=== PATIENT | female | born 1945 | race Caucasian/White ===

== ENCOUNTER → 2024-04-12 11:12 | Outpatient (CLI) | payer MEDICARE, OTHER, SELFPAY ==
[2024-04-12 12:06] LABS: Influenza A - CEPHEID Flu A NEGATIVE (NEGATIVE); Influenza B - CEPHEID Flu B NEGATIVE (NEGATIVE); Respiratory Syncytial Virus Negative (Negative)
[2024-04-12 12:07] LABS: COVID-19 CEPHEID 4-PLEX PCR POSITIVE (Negative)
== END ==
PROVIDERS: PCP Family Medicine; Referring Provider Family Medicine; Visit Provider Family Medicine
DX: R07.0 Pain in throat (principal); R05.8 Other specified cough; Z20.822 Contact with and (suspected) exposure to COVID-19
CPT/HCPCS: 0241U

== ENCOUNTER → 2024-05-21 16:38 | Outpatient (CLI) | payer MEDICARE, OTHER, SELFPAY ==
[2024-05-21 21:54] LABS: Occult Blood 1 Negative (Negative); Occult Blood 2 Negative (Negative); Occult Blood 3 Negative (Negative)
== END ==
PROVIDERS: PCP Family Medicine; Referring Provider Internal Medicine Gastroenterology; Visit Provider Internal Medicine Gastroenterology
DX: R19.5 Other fecal abnormalities (principal); R93.3 Abnormal findings on diagnostic imaging of other parts of digestive tract
CPT/HCPCS: 82270

== ENCOUNTER → 2024-06-10 13:14 | Outpatient (CLI) | payer MEDICARE, OTHER, SELFPAY ==
[2024-06-10 16:42] LABS: BUN Creatinine Ratio 17.3 (6-22); Blood Urea Nitrogen 18 mg/dL (7-17); Calcium 9.9 mg/dL (8.4-10.2); Estimated Glomerular Filt Rate 54 mL/min (>60)
== END ==
PROVIDERS: PCP Family Medicine; Referring Provider Family Medicine; Visit Provider Family Medicine
DX: M81.0 Age-related osteoporosis without current pathological fracture (principal); K92.1 Melena
CPT/HCPCS: 82310; 82565; 84520

== ENCOUNTER 2024-06-24 14:56 | Emergency (ER) | payer MEDICARE, OTHER, SELFPAY ==
[2024-06-24 15:15] VITALS: BP 215/95; PULSE 79; RESP 17; TEMP 36.4; O2SAT 100; BMI 18.6
--- NOTE | 2024-06-24 15:50 | DI.CT.S_ITS ---
PROCEDURE: CT HEAD/BRAIN WO CON INDICATIONS: fall TECHNIQUE: Noncontrast 4.5 mm thick angled axial sections acquired from the foramen magnum to the vertex, with coronal and sagittal reformats. For radiation dose reduction, the following was used: automated exposure control, adjustment of mA and/or kV according to patient size. COMPARISON: [facility], CT, CT CERVICAL SPINE WO CON, 06/24/2024, 16:13. FINDINGS: Image quality: Diagnostic. CSF spaces: Basal cisterns are patent. No extra-axial fluid collections. The ventricles are symmetric in size and shape. Brain: No intracranial bleeds or masses. There is cerebral volume loss for age, with resultant ventricular and sulcal prominence. There are periventricular and deep white matter chronic small vessel ischemic changes. There is intracranial internal carotid artery atherosclerosis. Skull and face: There is a soft tissue scalp hematoma seen within the right periorbital/temporal region. No associated calvarial fracture can be seen. Calvarium and visualized facial bones appear intact, without suspicious lesions. Sinuses: Visualized sinuses and mastoids are clear. IMPRESSION: Right periorbital/temporal scalp hematoma seen. No displaced calvarial fracture can be seen. No acute intracranial hemorrhage is seen. No acute intracranial process is seen. Dictated by: Jean Lechuga M.D. on 06/24/2024 at 15:40 Approved by: Jean Lechuga M.D. on 06/24/2024 at 15:40
--- NOTE | 2024-06-24 15:50 | DI.CT.S_ITS ---
PROCEDURE: CT CERVICAL SPINE WO CON INDICATIONS: fall TECHNIQUE: Noncontrast 3 mm thick sections acquired from the skull base to the T4 level. Sagittal and coronal reformats were then constructed. For radiation dose reduction, the following was used: automated exposure control, adjustment of mA and/or kV according to patient size. COMPARISON: None. FINDINGS: Image quality: Excellent. Bones: No fractures or dislocations. Visualized superior ribs are intact. Severe disc height loss at C5-6. Moderate disc height loss at remaining levels. Grade 1 anterolisthesis of C4 on C5 due to facet arthrosis. Soft tissues: Prevertebral soft tissues are normal in thickness. No paravertebral hematomas. No apical pneumothoraces. IMPRESSION: No displaced fracture or traumatic subluxation. Dictated by: Quinn Patiño M.D. on 06/24/2024 at 16:44 Approved by: Quinn Patiño M.D. on 06/24/2024 at 16:46
[2024-06-24] MEDS: TET,DIPH,PERTUSS(ACELL),VAC/PF 0.5 ML SYRINGE IM (15:57)
[2024-06-24 17:33] VITALS: BP 193/96; PULSE 79; RESP 14; O2SAT 95
--- NOTE | 2024-07-01 11:42 | ED_ITS ---
HPI - Fall <Marley Santos PA-C - Last Filed: 07/01/24 11:52> General Chief Complaint: Fall Stated Complaint: GLF, head hit, no blood thinners Time Seen by Provider: 06/24/24 15:36 Source: patient Mode of arrival: Ambulatory History of Present Illness HPI Narrative: 79-year-old female presents to the ED with a head injury from a mechanical fall sustained earlier today. Patient states that she turned around, lost her balance and fell on the sidewalk. Patient is not on thinners. Patient did not lose consciousness. Denies neck pain. Denies any other injuries. Tetanus status unknown. Related Data Home Medications Medication Instructions Recorded Confirmed ASPIRIN (#ASPIRIN E.C.) 81 mg PO Q DAY ##0 05/19/11 06/27/24 nortriptyline 10 mg capsule 10 mg PO ONCE PM 04/12/24 06/27/24 Previous Rx's Medication Instructions Recorded atenolol 25 mg tablet 25 mg PO DAILY #90 tabs 05/14/24 zoledronic acid 5 mg/100 mL in See Rx Instructions IV ONCE 06/28/24 mannitol 5 %-water intravenous piggybck Allergies Allergy/AdvReac Type Severity Reaction Status Date / Time No Known Drug Allergies Allergy Verified 06/26/24 10:40 Review of Systems <Marley Santos PA-C - Last Filed: 07/01/24 11:52> Constitutional Constitutional: Denies chills, Denies fatigue, Denies fever(s), Denies frequent falls, Reports headache(s), Denies lethargy and Denies weakness Comments: Bump on right temporal, abrasion Eyes Eyes: Denies change in vision, Denies eye discharge, Denies irritation and Denies loss of vision ENT Ears, Nose, Mouth, and Throat: Denies change in voice, Denies dizziness, Reports headache(s), Denies neck pain, Denies sore throat and Denies throat swelling Cardiovascular Cardiovascular: Denies chest pain, Denies irregular heart rhythm, Denies lightheadedness, Denies palpitations, Denies dyspnea, Denies dyspnea on exertion and Denies orthopnea Respiratory Respiratory: Denies cough, Denies dyspnea, Denies dyspnea on exertion and Denies wheezing Gastrointestinal Gastrointestinal: Denies abdominal pain, Denies change in bowel habits, Denies diarrhea, Denies nausea and Denies vomiting Musculoskeletal Musculoskeletal: Denies neck pain and Denies numbness Integumentary/Breasts Skin/Breast: Denies pruritus, Denies erythema, Denies rash and Denies wounds Neurologic Neurologic: Denies behavioral changes, Denies confusion, Denies dizziness, Denies frequent falls, Reports headache(s), Denies loss of vision, Denies numbness and Denies weakness Psychiatric Psychiatric: Denies anxiety, Denies behavioral changes, Denies confusion, Denies depression, Denies homicidal ideation and Denies suicidal ideation Endocrine Endocrine: Denies fatigue, Denies flushing and Denies palpitations Hematologic/Lymphatic Hematologic/Lymphatic: Denies easy bruising Allergic/Immunologic Allergic/Immunologic: Denies urticaria, Denies throat swelling and Denies wheezing Patient History <Marley Santos PA-C - Last Filed: 07/01/24 11:52> Medical History Osteoporosis IBS (irritable bowel syndrome) Carotid artery plaque Hypertension Hematochezia Nephrolithiasis Social History Smoking Status: Never smoker Smoking Status: Never smoker Exam <Marley Santos PA-C - Last Filed: 07/01/24 11:52> Narrative Exam Narrative: Const General:?cooperative, healthy appearing and comfortable [facility] Head: There is an abrasion and hematoma to the right temporal. No raccoon eyes, benitez signs. Ears:?hearing grossly normal bilaterally Nose:?external nose normal Face and sinus:?normal facial exam and sinuses nontender Mouth:?oral mucosae normal Throat:?posterior oropharynx normal Eyes General:?appearance normal, both eyes and all related structures Neck Neck:?normal visual inspection and no lymphadenopathy noted; no midline tenderness to palpation. Full range of motion. Resp Effort & Inspection:?normal respiratory effort Auscultation:?clear to auscultation bilaterally Cardio Rate:?regular rate Rhythm:?regular rhythm Neuro General:?patient alert, patient awake and patient oriented x3 Initial Vital Signs Initial Vital Signs: Vital Signs Temperature 97.6 F 06/24/24 15:15 Pulse Rate 79 06/24/24 15:15 Respiratory Rate 17 06/24/24 15:15 Blood Pressure 215/95 H 06/24/24 15:15 Pulse Oximetry 100 10/07/24 15:15 Oxygen Delivery Method Room Air 06/24/24 15:15 <Ayde Martinez DO - Last Filed: 07/01/24 23:13> Initial Vital Signs Initial Vital Signs: Vital Signs Temperature 97.6 F 06/24/24 15:15 Pulse Rate 79 06/24/24 15:15 Respiratory Rate 17 06/24/24 15:15 Blood Pressure 215/95 H 06/24/24 15:15 Pulse Oximetry 100 06/24/24 15:15 Oxygen Delivery Method Room Air 06/24/24 15:15 Course <Marley Santos PA-C - Last Filed: 07/01/24 11:52> Orders Ordered: Discontinued Medications Diphtheria/Tetanus/Acell Pertussis (Tet,Diph,Pertuss(Acell),Vac/Pf 0.5 Ml S yringe) 0.5 ml IM .ONCE ONE Stop: 06/24/24 15:51 Last Admin: 06/24/24 15:57 Dose: 0.5 ml Documented By: RLS <Ayde Martinez DO - Last Filed: 07/01/24 23:13> Orders Ordered: Discontinued Medications Diphtheria/Tetanus/Acell Pertussis (Tet,Diph,Pertuss(Acell),Vac/Pf 0.5 Ml Syringe) 0.5 ml IM .ONCE ONE Stop: 06/24/24 15:51 Last Admin: 06/24/24 15:57 Dose: 0.5 ml Documented By: GENESIS MDM - Fall <Marley Santos PA-C - Last Filed: 07/01/24 11:52> [facility] Narrative Medical decision making narrative: 79-year-old female presents to the ED with a head injury from a mechanical fall sustained earlier today. Concern for fracture versus intracranial injuries versus hematoma versus other. Obtained CT scans of head and cervical spine. CT scan of the head shows a right periorbital/temporal scalp hematoma. No intracranial hemorrhage, intracranial process, calvarial fracture. CT scan of the cervical spine without acute findings. Patient's tetanus was updated. Fall precautions discussed with patient. ED return precautions discussed with patient. Patient verbalized understanding. Medical records reviewed: Yes Discharge Plan Departure Patient Disposition: Home Clinical Impression: Head injury Qualifiers: Encounter type: initial encounter Qualified Code(s): S09.90XA - Unspecified injury of head, initial encounter Instructions: How to Prevent Falls Activity Restrictions/Additional Instructions: You were evaluated in the ED today for a head injury. The CT scans of the head and neck were normal. Your tetanus was updated today, which is good for the n ext 10 years. It appears you have a small hematoma/goose egg over your right temporal. This will resolve by itself over the next few days. Return to the ED if you have any worsening symptoms. Prescriptions: No Action nortriptyline 10 mg capsule 10 mg PO ONCE PM ASPIRIN (#ASPIRIN E.C.) 81 mg PO Q DAY Qty: 0 atenolol 25 mg tablet 25 mg PO DAILY MDD 1 Tablet daily Qty: 90 0RF zoledronic zouh-joysguza-owcas 5 mg/100 mL piggyback See Rx Instructions IV ONCE Rx Instructions: 5 mg intravenously once; administer over at least 15 mins Referrals: Natacha Matthew MD [Primary Care Provider] - Stand Alone Forms: Patient Portal/API ED Sign-out <Ayde Martinez DO - Last Filed: 07/01/24 23:13> Cosign ED Attending Murray Attestation: I was available for consultation.
== END 2024-06-24 17:38 | disposition home or self-care (01) ==
PROVIDERS: Emergency Provider Student in an Organized Health Care Education/Training Program; PCP Family Medicine
DX: S09.90XA Unspecified injury of head, initial encounter (principal); W18.30XA Fall on same level, unspecified, initial encounter; Z23 Encounter for immunization
CPT/HCPCS: 70450; 72125; 90471; 99284; 90715

== ENCOUNTER → 2024-07-16 10:34 | Outpatient (CLI) | payer MEDICARE, OTHER, SELFPAY ==
--- NOTE | 2024-07-16 10:35 | DI.US.S_ITS ---
PROCEDURE: US CAROTID DOPPLER BI INDICATIONS: DIZZINESS AND SYNCOPE TECHNIQUE: Color and pulse Doppler interrogation was performed of both carotid systems, with image documentation and velocity measurements. COMPARISON: [facility], CT, CT CERVICAL SPINE WO CON, 06/24/2024, 16:13. FINDINGS: Stenosis calculations are based on SRU (Society of Radiologists in Ultrasound) criteria. Right side: Brachial blood pressure: 146/75 mm Hg. Common carotid artery peak systolic velocity: 80 cm/sec. Internal carotid artery peak systolic velocity: 110 cm/sec. Internal carotid artery end diastolic velocity: 39 cm/sec. External carotid artery peak systolic velocity: 105 cm/sec. ICA/CCA peak systolic ratio: 1.4 . Pollard scale imaging description: Mild plaque. Less than 50% stenosis. Percent internal carotid artery stenosis: Less than 50% by peak systolic velocity criteria. . Vertebral artery: Flow direction is antegrade. Left side: Brachial blood pressure: 140/73 mm Hg. Common carotid artery peak systolic velocity: 91 cm/sec. Internal carotid artery peak systolic velocity: 112 cm/sec. Internal carotid artery end diastolic velocity: 33 cm/sec. External carotid artery peak systolic velocity: 62 cm/sec. ICA/CCA peak systolic ratio: 1.2 . Pollard scale imaging description: Mild plaque. No significant stenosis. Percent internal carotid artery stenosis: Less than 50% by peak systolic velocity criteria. . Vertebral artery: Flow direction is antegrade. IMPRESSION: There is bilateral atherosclerotic plaque with less than 50% bilateral stenosis by peak systolic velocity criteria. Dictated by: Orlando Gotti M.D. on 07/16/2024 at 16:59 Approved by: Orlando Gotti M.D. on 07/16/2024 at 17:03
== END ==
PROVIDERS: PCP Family Medicine; Referring Provider Family Medicine; Visit Provider Family Medicine
DX: I65.23 Occlusion and stenosis of bilateral carotid arteries (principal); R42 Dizziness and giddiness; R55 Syncope and collapse
CPT/HCPCS: 93880

== ENCOUNTER → 2024-07-25 09:45 | Outpatient (CLI) | payer MEDICARE, OTHER, SELFPAY ==
[2024-07-25 11:23] LABS: Alanine Aminotransferase 21 IU/L (<35); Albumin 3.9 g/dL (3.5-5.0); Albumin Globulin Ratio 1.6 (1.0-2.8); Alkaline Phosphatase 76 U/L (38-126); Aspartate Aminotransferase 29 IU/L (14-36); BUN Creatinine Ratio 13.5 (6-22); Bilirubin Total 0.6 mg/dL (0.2-1.3); Blood Urea Nitrogen 13 mg/dL (7-17); Calcium 9.7 mg/dL (8.4-10.2); Carbon Dioxide 25 mmol/L (22-32); Chloride 106 mmol/L (98-107); Estimated Glomerular Filt Rate 59 mL/min (>60); Globulin 2.5 g/dL (1.7-4.1); Glucose 80 mg/dL (80-110); HEMOLYSIS < 15 (0-50); Potassium 4.9 mmol/L (3.4-5.1); Sodium 137 mmol/L (137-145); Total Protein 6.4 g/dL (6.3-8.2)
== END ==
PROVIDERS: PCP Family Medicine; Referring Provider Family Medicine; Visit Provider Family Medicine
DX: M81.0 Age-related osteoporosis without current pathological fracture (principal)
CPT/HCPCS: 36415; 80053

== ENCOUNTER 2025-04-09 13:12 | Emergency (ER) | payer MEDICARE, OTHER, SELFPAY ==
[2025-04-09 13:41] VITALS: BP 183/74; PULSE 79; RESP 16; TEMP 36.4; O2SAT 100; BMI 18.0
--- NOTE | 2025-04-09 13:54 | EKG_ITS ---
[address] [address] Test Date: 2025-04-09 Pat Name: Ciera Bueno Department: Room: Gender: Female Director Of Restaurant: RICKEY : [id number] Requested By: Order Number: [id number] Reading MD: Kyle Ornelas Measurements Intervals [place] Rate: 78 P: 63 SC: 142 QRS: 19 QRSD: 86 T: 63 QT: 400 QTc: 456 Interpretive Statements Normal sinus rhythm with sinus arrhythmia Electronically Signed On 04-09-2025 15:11:09 PDT by Kyle Ornelas
[2025-04-09 14:20] LABS: Add Manual Diff / Slide Review NO; Hematocrit 42.8 % (36-46); Hemoglobin 14.6 g/dL (12.0-16.0); Lymphocytes Absolute Auto 1500 /uL (1100-4500); Mean Corpuscular HGB Conc 34.1 % (30-36); Mean Corpuscular Hemoglobin 32.3 PG (26-34); Mean Corpuscular Volume 94.6 fL (80-100); Platelet Count 156 X10^3/uL (150-400)
[2025-04-09 14:31] LABS: Alanine Aminotransferase 30 IU/L (<35); Albumin 4.1 g/dL (3.5-5.0); Albumin Globulin Ratio 1.5 (1.0-2.8); Alkaline Phosphatase 66 U/L (38-126); Blood Urea Nitrogen 17 mg/dL (7-17); Calcium 9.3 mg/dL (8.4-10.2); Carbon Dioxide 25 mmol/L (22-32); Chloride 106 mmol/L (98-107); Estimated Glomerular Filt Rate 56 mL/min (>60); Globulin 2.8 g/dL (1.7-4.1); Glucose 100 mg/dL (70-99); HEMOLYSIS 18 (0-50); Lipase 48 U/L (23-300); Potassium 4.1 mmol/L (3.4-5.1); Sodium 140 mmol/L (137-145); Total Protein 6.9 g/dL (6.3-8.2)
[2025-04-09 15:32] LABS: Culture Indicated Urine Specimen Cultured
[2025-04-09 16:13] VITALS: BP 195/96; PULSE 81; RESP 20; O2SAT 100
--- NOTE | 2025-04-09 17:10 | ED.ABDPAIN ---
HPI - Abdominal Pain General Chief Complaint: Abdominal Pain Stated Complaint: Upper stomach pain Time Seen by Provider: 04/09/25 17:06 Source: patient Mode of arrival: Ambulatory History of Present Illness HPI narrative: This is a patient who apparently has a history of episodic abdominal pain presented with upper abdominal pain today after diarrhea throughout the night last night. Labs were obtained by nursing staff and reviewed by me and generally unremarkable. At 5:10 p.m., the patient was requesting discharge. I had not yet been able to see her. She states she can see her gastroenterology doctor and she is feeling well. Of note there was some pyuria on her urinalysis, she says she is not having urinary tract symptoms. Related Data Home Medications ?Medication ?Instructions ?Recorded ?Confirmed ASPIRIN (#ASPIRIN E.C.) 81 mg PO Q DAY ##0 05/19/11 01/20/25 Previous Rx's ?Medication ?Instructions ?Recorded ciclopirox 8 % topical solution 1 applic topical BEDTIME 3 months 01/23/25 (Ciclodan) #6.6 mL nifedipine 30 mg tablet,extended 30 mg PO DAILY #30 tabs 01/29/25 release zoledronic acid 5 mg/100 mL in See Rx Instructions IV ONCE 01/29/25 mannitol 5 %-water intravenous piggybck atenolol 25 mg tablet 25 mg PO DAILY #90 tabs 02/24/25 nortriptyline 10 mg capsule 10 mg PO QPM #90 caps 02/24/25 Allergies Allergy/AdvReac Type Severity Reaction Status Date / Time No Known Drug Allergies Allergy Verified 01/20/25 11:40 Patient History Medical History (Updated 04/09/25 @ 17:15 by Kevin Bryant MD) Raynauds phenomenon Onychomycosis Osteoporosis IBS (irritable bowel syndrome) Carotid artery plaque Hypertension Hematochezia Nephrolithiasis Social History Smoking Status: Never smoker Smoking Status: Never smoker Exam Initial Vital Signs Initial Vital Signs: Vital Signs Temperature 97.5 F L 04/09/25 13:41 Pulse Rate 79 04/09/25 13:41 Respiratory Rate 16 04/09/25 13:41 Blood Pressure 183/74 H 04/09/25 13:41 Pulse Oximetry 100 04/09/25 13:41 Oxygen Delivery Method Room Air 04/09/25 13:41 Const Other: Well-appearing elderly female with hypertension noted on her vital signs. She is ambulatory with a steady gait. Patient did not wish to stay in the emergency department and no further exam was completed per her wishes Course Orders Ordered: ED Orders 04/09/25 13:47 EKG-12 Lead Stat 04/09/25 14:12 Complete Blood Count AUTO DIFF Stat Comprehensive Metabolic Panel Stat Lipase Stat 04/09/25 14:14 Urine Culture Stat Urine Microscopic Stat Ondansetron HCl (Ondansetron 4 Mg/2 Ml Inj) 4 mg IV NOW PRN PRN Reason: Nausea And Vomiting Ondansetron HCl (Ondansetron 4 Mg Odt) 4 mg PO NOW PRN PRN Reason: Nausea And Vomiting Vital Signs Vital signs: Vital Signs - 8 hr 04/09/25 13:41 04/09/25 16:13 Temperature 97.5 F L Pulse Rate 79 81 Respiratory Rate 16 20 Blood Pressure 183/74 H 195/96 H Pulse Oximetry 100 100 Oxygen Delivery Method Room Air Room Air MDM - Abdominal Pain Lab Data Lab results narrative: Labs were reviewed, CBC with diff and CMP are reassuring, lipase is normal, pyuria on urinalysis 04/09/25 14:12 04/09/25 14:12 Labs: Lab Results 04/09/25 04/09/25 Range/Units 14:12 14:14 WBC 6.0 (4.5-11.0) X10^3/uL RBC 4.52 (4.0-5.2) X10^6/uL Hgb 14.6 (12.0-16.0) g/dL Hct 42.8 (36-46) % MCV 94.6 (80-100) fL MCH 32.3 (26-34) PG MCHC 34.1 (30-36) % RDW 13.8 (11.6-14.8) % Plt Count 156 (150-400) X10^3/uL Neut % (Auto) 63.8 (50-75) % Lymph % (Auto) 24.9 L (25-40) % Wood % (Auto) 6.9 (3-14) % Eos % (Auto) 3.4 (2-4) % Baso % (Auto) 1.0 (0-2) % Neut # (Auto) 3800 (7359-2963) /uL Lymph # (Auto) 1500 (4190-1517) /uL Wood # (Auto) 400 (0-900) /uL Eos # (Auto) 200 (0-450) /uL Baso # (Auto) 100 (0-100) /uL Sodium 140 (137-145) mmol/L Potassium 4.1 (3.4-5.1) mmol/L Chloride 106 (98-107) mmol/L Carbon Dioxide 25 (22-32) mmol/L BUN 17 (7-17) mg/dL Creatinine 1.00 (0.52-1.04) mg/dL Estimated GFR 56 L (>60) mL/min BUN/Creatinine Ratio 17.0 (6-22) Glucose 100 H (70-99) mg/dL Calcium 9.3 (8.4-10.2) mg/dL Total Bilirubin 0.7 (0.2-1.3) mg/dL AST 39 H (14-36) IU/L ALT 30 (<35) IU/L Alkaline Phosphatase 66 (38-126) U/L Total Protein 6.9 (6.3-8.2) g/dL Albumin 4.1 (3.5-5.0) g/dL Globulin 2.8 (1.7-4.1) g/dL Albumin/Globulin Ratio 1.5 (1.0-2.8) Lipase 48 (23-300) U/L Urine RBC 0-1/hpf (0-5/HPF) Urine WBC 5-10/hpf H (0-5/HPF) Ur Squamous Epith Cells 0-1 /hpf (0-5/HPF) Urine Bacteria Occasional (0-1) (None) Ur Culture Indicated? Specimen cultured Vol Urine Centrifuged 10ml (spun) Point of care testing: Urine Dip Bedside Urine Glucose Negative Bedside Urine Bilirubin - Negative Bedside Urine Ketone - Negative Urine Specific [place] 1.010 Bedside Urine Occult Blood ++ Bedside Urine pH 6 Bedside Urine Protein +/- 15 Bedside Urine Urobilinogen - Negative Bedside Urine Nitrite - Negative Bedside Urine Leukocytes ++ 125 Esterase MDM Narrative Medical decision making narrative: 80-year-old female who presented with abdominal pain, reported that she was feeling better during her emergency department visit and I did not get to do a full evaluation on her in fact my evaluation was limited to a visual exam and preverbal encounter with the patient confirmed that she was feeling well and wished to leave without full physician evaluation. Patient was discharged at that point, she was encouraged to return at any point and follow up with her outpatient soil technologist and primary care provider Discharge Plan Departure Patient Disposition: Home Clinical Impression: Abdominal pain Activity Restrictions/Additional Instructions: Patient's abdominal pain resolved while she was in the emergency department and she requested discharge prior to full exam by physician Prescriptions: No Action ciclopirox [Ciclodan] 8 % solution 1 applic topical BEDTIME 90 Days Qty: 6.6 2RF nifedipine 30 mg tablet extended release 30 mg PO DAILY Qty: 30 2RF ASPIRIN (#ASPIRIN E.C.) 81 mg PO Q DAY Qty: 0 zoledronic zlhd-zptqbdxk-alfkk 5 mg/100 mL piggyback See Rx Instructions IV ONCE Rx Instructions: 5 mg intravenously once; administer over at least 15 mins nortriptyline 10 mg capsule 10 mg PO QPM Qty: 90 0RF atenolol 25 mg tablet 25 mg PO DAILY Qty: 90 0RF Referrals: Natacha Matthew MD [Primary Care Provider, Family Practice] Stand Alone Forms: Patient Portal/API
--- NOTE | 2025-04-09 17:10 | PC.NURSE ---
Addendum entered by Erin Hunt R.N. 04/09/25 17:14: dr bryan did meet the patient to verify that she wanted no further treatment. Original Note: patient approached the nursing station states feeling better and would like to leave, states she is going to follow up with dr. Scott GOTTI at [facility]. notified dr. bryan. patient did not sign ama, patient did leave before 's examination.
== END 2025-04-09 17:20 | disposition home or self-care (01) ==
PROVIDERS: Emergency Provider Emergency Medicine; PCP Family Medicine
DX: R10.10 Upper abdominal pain, unspecified (principal); R19.7 Diarrhea, unspecified; I10 Essential (primary) hypertension
CPT/HCPCS: 36415; 80053; 81003; 81015; 83690; 85025; 87086; 93005; 99283

== ENCOUNTER → 2025-04-25 08:24 | Outpatient (CLI) | payer MEDICARE, OTHER, SELFPAY ==
--- NOTE | 2025-04-25 08:25 | DI.US.S_ITS ---
PROCEDURE: US ABDOMEN COMPLETE INDICATIONS: postprandial abdominal pain and darrhea TECHNIQUE: Real-time scanning was performed of the abdominal and retroperitoneal organs, with image documentation. COMPARISON: None. FINDINGS: Liver: Liver is normal in size and homogeneous in echotexture. Gallbladder: No stones or wall thickening. Biliary ducts: Intrahepatic bile ducts are non-dilated. Extrahepatic bile duct caliber measures 3.4 mm. Normal is 6-7 mm or less in diameter, or 10 mm or less post-cholecystectomy. Pancreas: Visualized portions of the pancreas are sonographically normal. Spleen: Spleen is normal in size and homogeneous in echotexture. Kidneys: There is a stone within the right renal pelvis measuring 1.8 cm. There is moderate right-sided hydronephrosis. Nonobstructing stone along the inferior margin measuring 5 mm. Both kidneys are small and echogenic. Aorta: Visualized aorta is normal in caliber at less than 3 cm. Iliacs: Proximal common iliac arteries are normal in caliber at less than 2.5 cm. IVC: Intrahepatic inferior vena cava is patent. Miscellaneous: No free abdominal fluid. IMPRESSION: Obstructing stone in the right renal pelvis measuring 1.8 cm, resulting in moderate hydronephrosis. Accurate primary report sent to ordering provider by the technologist at the time of exam. Dictated by: Quinn Patiño M.D. on 04/25/2025 at 9:12 Approved by: Quinn Patiño M.D. on 04/25/2025 at 9:15
== END ==
PROVIDERS: PCP Family Medicine; Referring Provider Family Medicine; Visit Provider Family Medicine
DX: R10.9 Unspecified abdominal pain (principal); N13.2 Hydronephrosis with renal and ureteral calculous obstruction
CPT/HCPCS: 76700

== ENCOUNTER 2025-04-25 09:40 | Emergency (ER) | payer MEDICARE, OTHER, SELFPAY ==
[2025-04-25] VITALS (14 sets, daily range): BP systolic 198–234; BP diastolic 89–100; PULSE 68–73; RESP 14–18; TEMP 37.2; O2SAT 96–100; BMI 18.6
--- NOTE | 2025-04-25 10:23 | ED.GENADULT ---
HPI - General Adult General Chief complaint: Hypertension Stated complaint: Kidney stone found in US this am Time Seen by Provider: 04/25/25 09:41 Source: patient Mode of arrival: Ambulatory History of Present Illness HPI narrative: 80-year-old female with known history of kidney stone sigmoid colon kink noted on prior colonoscopy history of colitis, recurrent episodic sudden onset diarrhea, sent for ultrasound found to have kidney stone sent over here for further evaluation. She is asymptomatic at this time with no pain head to toe. She denies fever, chills, body aches, sore throat, nausea, vomiting, diarrhea, abdominal pain, chest pain, shortness of breath, cough, sore throat. Other than what is stated 14 point review of system is negative Related Data Home Medications ?Medication ?Instructions ?Recorded ?Confirmed ASPIRIN (#ASPIRIN E.C.) 81 mg PO Q DAY ##0 05/19/11 01/20/25 Previous Rx's ?Medication ?Instructions ?Recorded ciclopirox 8 % topical solution 1 applic topical BEDTIME 3 months 01/23/25 (Ciclodan) #6.6 mL nifedipine 30 mg tablet,extended 30 mg PO DAILY #30 tabs 01/29/25 release zoledronic acid 5 mg/100 mL in See Rx Instructions IV ONCE 01/29/25 mannitol 5 %-water intravenous piggybck atenolol 25 mg tablet 25 mg PO DAILY #90 tabs 02/24/25 nortriptyline 10 mg capsule 10 mg PO QPM #90 caps 02/24/25 hydrocodone 5 mg-acetaminophen 325 1 tab PO Q4-6H PRN pain #20 tabs 04/25/25 mg tablet nitrofurantoin 100 mg PO Q12H 5 days #10 caps 04/25/25 monohydrate/macrocrystals 100 mg capsule (Macrobid) tamsulosin 0.4 mg capsule (Flomax) 0.4 mg PO BEDTIME #30 caps 04/25/25 Allergies Allergy/AdvReac Type Severity Reaction Status Date / Time No Known Drug Allergies Allergy Verified 01/20/25 11:40 Review of Systems Review of Systems ROS Unobtainable: All systems reviewed & are unremarkable except as noted in HPI and below Patient History Medical History (Updated 04/25/25 @ 12:41 by Oc Rojas, ) Raynauds phenomenon Onychomycosis Osteoporosis IBS (irritable bowel syndrome) Carotid artery plaque Hypertension Hematochezia Nephrolithiasis Social History Smoking Status: Never smoker Smoking Status: Never smoker Exam Narrative Exam Narrative: GENERAL: [80] year old patient appears stated age. Well-developed patient, in mild distress. HEAD: Atraumatic. Normocephalic. EYES: Pupils equal round and reactive. Extraocular motions intact. No scleral icterus. No injection or drainage. ENT: Nose without bleeding, purulent drainage. Throat without erythema, tonsillar hypertrophy or exudate. Airway patent. NECK: Trachea midline. Non tender CARDIOVASCULAR: Regular rate and rhythm without murmurs, gallops, or rubs. RESPIRATORY: Clear to auscultation. Breath sounds equal bilaterally. No wheezes, rales, or rhonchi. GASTROINTESTINAL: Abdomen soft, non-tender, nondistended. EXTREMITIES: No edema or joint tenderness. BACK: Nontender without deformity or crepitance. No flank tenderness. NEURO: AOx3. SKIN: No rash or erythema of visible areas Initial Vital Signs Initial Vital Signs: Vital Signs Temperature 98.9 F 04/25/25 09:54 Pulse Rate 69 04/25/25 09:54 Respiratory Rate 18 04/25/25 09:54 Blood Pressure 221/91 H 04/25/25 09:54 Pulse Oximetry 100 04/25/25 09:54 Oxygen Delivery Method Room Air 04/25/25 09:54 Course Orders Ordered: ED Orders 04/25/25 10:29 CT kidney ureter bladder (KUB) Stat EKG-12 Lead Stat 04/25/25 10:31 Complete Blood Count AUTO DIFF Stat Comprehensive Metabolic Panel Stat Lipase Stat Nitrofurantoin Macrocrystals (Nitrofurantoin Er 100 Mg Capsule) 100 mg PO NOW ONE Stop: 04/25/25 13:12 Ondansetron HCl (Ondansetron 4 Mg/2 Ml Inj) 4 mg IV NOW PRN PRN Reason: Nausea And Vomiting Ondansetron HCl (Ondansetron 4 Mg Odt) 4 mg PO NOW PRN PRN Reason: Nausea And Vomiting Ondansetron HCl (Ondansetron 4 Mg/2 Ml Inj) 4 mg IV NOW PRN PRN Reason: Nausea And Vomiting Ondansetron HCl (Ondansetron 4 Mg Odt) 4 mg PO NOW PRN PRN Reason: Nausea And Vomiting Discontinued Medications Lactated Ringer's (Lactated Ringers) 1,000 mls @ 1,000 mls/hr IV BOLUS ONE Stop: 04/25/25 11:29 Last Admin: 04/25/25 11:15 Dose: 1,000 mls/hr Documented By: TOMASA Tamsulosin HCl (Tamsulosin 0.4 Mg Capsule) 0.4 mg PO NOW ONE Stop: 04/25/25 12:42 Last Admin: 04/25/25 13:02 Dose: 0.4 mg Vital Signs Vital signs: Vital Signs - 8 hr 04/25/25 09:54 04/25/25 09:55 04/25/25 09:57 Temperature 98.9 F Pulse Rate 69 68 72 Respiratory Rate 18 Blood Pressure 221/91 H Pulse Oximetry 100 96 96 Oxygen Delivery Method Room Air 04/25/25 09:57 04/25/25 10:00 04/25/25 10:00 Temperature Pulse Rate 69 Respiratory Rate Blood Pressure 222/91 H 206/89 H Pulse Oximetry 99 Oxygen Delivery Method 04/25/25 10:30 04/25/25 10:30 04/25/25 10:56 Temperature Pulse Rate 69 71 Respiratory Rate Blood Pressure 206/100 H Pulse Oximetry 100 100 Oxygen Delivery Method 04/25/25 10:56 04/25/25 11:00 04/25/25 11:00 Temperature Pulse Rate 72 Respiratory Rate Blood Pressure 234/94 H 224/99 H Pulse Oximetry 100 Oxygen Delivery Method 04/25/25 11:30 04/25/25 11:30 04/25/25 12:00 Temperature Pulse Rate 72 Respiratory Rate Blood Pressure 214/96 H 213/92 H Pulse Oximetry 98 Oxygen Delivery Method 04/25/25 12:00 04/25/25 12:30 04/25/25 12:30 Temperature Pulse Rate 68 70 Respiratory Rate Blood Pressure 210/89 H Pulse Oximetry 100 100 Oxygen Delivery Method 04/25/25 12:45 04/25/25 13:00 04/25/25 13:03 Temperature Pulse Rate 70 71 Respiratory Rate Blood Pressure 215/93 H Pulse Oximetry 97 Oxygen Delivery Method 04/25/25 13:03 Temperature Pulse Rate Respiratory Rate Blood Pressure 198/91 H Pulse Oximetry Oxygen Delivery Method Medical Decision Making Lab Data 04/25/25 10:31 04/25/25 10:31 Labs: Lab Results 04/25/25 Range/Units 10:31 WBC 6.1 (4.5-11.0) X10^3/uL RBC 4.89 (4.0-5.2) X10^6/uL Hgb 15.6 (12.0-16.0) g/dL Hct 46.3 H (36-46) % MCV 94.6 (80-100) fL MCH 31.9 (26-34) PG MCHC 33.7 (30-36) % RDW 13.8 (11.6-14.8) % Plt Count 166 (150-400) X10^3/uL Neut % (Auto) 62.3 (50-75) % Lymph % (Auto) 25.6 (25-40) % Murray % (Auto) 7.5 (3-14) % Eos % (Auto) 3.7 (2-4) % Baso % (Auto) 0.9 (0-2) % Neut # (Auto) 3800 (2104-2039) /uL Lymph # (Auto) 1600 (0930-4000) /uL Murray # (Auto) 500 (0-900) /uL Eos # (Auto) 200 (0-450) /uL Baso # (Auto) 100 (0-100) /uL Sodium 142 (137-145) mmol/L Potassium 4.2 (3.4-5.1) mmol/L Chloride 105 (98-107) mmol/L Carbon Dioxide 26 (22-32) mmol/L BUN 16 (7-17) mg/dL Creatinine 0.87 (0.52-1.04) mg/dL Estimated GFR > 60 (>60) mL/min BUN/Creatinine Ratio 18.4 (6-22) Glucose 88 (70-99) mg/dL Calcium 9.6 (8.4-10.2) mg/dL Total Bilirubin 1.0 (0.2-1.3) mg/dL AST 37 H (14-36) IU/L ALT 26 (<35) IU/L Alkaline Phosphatase 78 (38-126) U/L Total Protein 7.6 (6.3-8.2) g/dL Albumin 4.6 (3.5-5.0) g/dL Globulin 3.0 (1.7-4.1) g/dL Albumin/Globulin Ratio 1.5 (1.0-2.8) Lipase 52 (23-300) U/L Urine Dip Bedside Urine Glucose Negative Bedside Urine Bilirubin - Negative Bedside Urine Ketone +/- 5 Urine Specific [place] 1.015 Bedside Urine Occult Blood +++ Bedside Urine pH 6.5 Bedside Urine Protein + 30 Bedside Urine Urobilinogen - Negative Bedside Urine Nitrite - Negative Bedside Urine Leukocytes + 70 Esterase Point of care testing: Urine Dip Bedside Urine Glucose Negative Bedside Urine Bilirubin - Negative Bedside Urine Ketone +/- 5 Urine Specific [place] 1.015 Bedside Urine Occult Blood +++ Bedside Urine pH 6.5 Bedside Urine Protein + 30 Bedside Urine Urobilinogen - Negative Bedside Urine Nitrite - Negative Bedside Urine Leukocytes + 70 Esterase Imaging Data US - abdomen: Radiologist's Impression: [address] [address] Ultrasound Report Signed Patient: Ciera Bueno MR#: [id number] : 1945 Acct:[id number] Age/Sex: 80 / F Date of Service: 04/25/25 Loc: US Accession Number: [id number] Procedure: US abdomen complete Ordering Provider: Natacha Matthew MD PROCEDURE: US ABDOMEN COMPLETE INDICATIONS: postprandial abdominal pain and darrhea TECHNIQUE: Real-time scanning was performed of the abdominal and retroperitoneal organs, with image documentation. COMPARISON: None. FINDINGS: Liver: Liver is normal in size and homogeneous in echotexture. Gallbladder: No stones or wall thickening. Biliary ducts: Intrahepatic bile ducts are non-dilated. Extrahepatic bile duct caliber measures 3.4 mm. Normal is 6-7 mm or less in diameter, or 10 mm or less post-cholecystectomy. Pancreas: Visualized portions of the pancreas are sonographically normal. Spleen: Spleen is normal in size and homogeneous in echotexture. Kidneys: There is a stone within the right renal pelvis measuring 1.8 cm. There is moderate right-sided hydronephrosis. Nonobstructing stone along the inferior margin measuring 5 mm. Both kidneys are small and echogenic. Aorta: Visualized aorta is normal in caliber at less than 3 cm. Iliacs: Proximal common iliac arteries are normal in caliber at less than 2.5 cm. IVC: Intrahepatic inferior vena cava is patent. Miscellaneous: No free abdominal fluid. IMPRESSION: Obstructing stone in the right renal pelvis measuring 1.8 cm, resulting in moderate hydronephrosis. Accurate primary report sent to ordering provider by the technologist at the time of exam. CT scan - abdomen/pelvis: Radiologist's Impression: [address] [address] [address] Scan Report Signed Patient: Ciera Bueno MR#: [id number] : 1945 Acct:[id number] Age/Sex: 80 / F Date of Service: 04/25/25 Loc: ED Accession Number: [id number] Procedure: CT kidney ureter bladder (KUB) Ordering Provider: Oc Rojas D.O. PROCEDURE: CT KIDNEY URETER BLADDER (KUB) INDICATIONS: kidney stone TECHNIQUE: CT of the abdomen and pelvis was obtained without intravenous contrast. Coronal and sagittal reformats were performed. For radiation dose reduction, the following was used: automated exposure control, adjustment of mA and/or kV according to patient size. COMPARISON: None. FINDINGS: Image quality: Diagnostic. Lower Chest: No significant findings. ABDOMEN: Liver: No contour-deforming mass. Gallbladder: No radiopaque gallstones or wall thickening. Biliary ducts: No biliary dilation. Pancreas: No ductal dilation. Spleen: Size is within normal limits. Adrenal Glands: No adrenal nodules. Kidneys and Ureters: Obstructing 1.3 x 0.8 cm stone in the right renal pelvis, resulting in moderate right-sided hydronephrosis and renal edema. Stomach and Bowel: Normal colonic caliber, without significant wall thickening. Colonic diverticulosis without evidence of diverticulitis. Peritoneum: Small amount of free fluid in the pelvis, probably reactive. Ventral Wall: No significant hernia. Abdominal Nodes: No retroperitoneal or mesenteric adenopathy by size criteria. Vessels: Aorta and inferior vena cava are normal in size. PELVIS: Pelvic Organs: Unremarkable. Bladder: Unremarkable. Pelvic Nodes: No enlarged lymph nodes. Miscellaneous: No inguinal hernias are seen. Bones: No aggressive osseous abnormality. IMPRESSION: Obstructing 1.3 x 0.8 cm stone in the right renal pelvis, resulting in moderate right-sided hydronephrosis and renal edema. Dictated by: Quinn Patiño M.D. on 04/25/2025 at 11:01 Approved by: Quinn Patiño M.D. on 04/25/2025 at 11:04 [facility] Narrative Medical decision making narrative: All lab work vital signs nurse triage note medication list previous ER visits in all imaging studies reviewed. BUN [address] abdomen pelvis showed obstructing 1.3 x 0.8 right renal pelvis resulting in moderate right-sided hydronephrosis and renal edema. Macrobid 100mg PO x 1 given and d/c home rx. Patient is asymptomatic at this time case discussed with Dr. Benedict who will follow up patient next week she is asymptomatic and not in any pain or distress. Discharge Plan Departure Patient Disposition: Home Clinical Impression: Kidney stone Instructions: DI for Kidney Stones Activity Restrictions/Additional Instructions: Return with new or worsening symptoms. Follow up with Urology next week. Keep hydrated. Take medicines as directed. Prescriptions: New tamsulosin [Flomax] 0.4 mg capsule 0.4 mg PO BEDTIME Qty: 30 0RF hydrocodone-acetaminophen 5-325 mg tablet 1 tab PO Q4-6H PRN (Reason: pain) Qty: 20 0RF nitrofurantoin monohyd/m-cryst [Macrobid] 100 mg capsule 100 mg PO Q12H 5 Days Qty: 10 0RF Rx Instructions: must administer with a meal/food No Action ciclopirox [Ciclodan] 8 % solution 1 applic topical BEDTIME 90 Days Qty: 6.6 2RF nifedipine 30 mg tablet extended release 30 mg PO DAILY Qty: 30 2RF ASPIRIN (#ASPIRIN E.C.) 81 mg PO Q DAY Qty: 0 zoledronic [id number] 5 mg/100 mL piggyback See Rx Instructions IV ONCE Rx Instructions: 5 mg intravenously once; administer over at least 15 mins nortriptyline 10 mg capsule 10 mg PO QPM Qty: 90 0RF atenolol 25 mg tablet 25 mg PO DAILY Qty: 90 0RF Referrals: Natacha Matthew MD [Primary Care Provider, Family Practice] Stand Alone Forms: Patient Portal/API
--- NOTE | 2025-04-25 10:29 | DI.CT.S_ITS ---
PROCEDURE: CT KIDNEY URETER BLADDER (KUB) INDICATIONS: kidney stone TECHNIQUE: CT of the abdomen and pelvis was obtained without intravenous contrast. Coronal and sagittal reformats were performed. For radiation dose reduction, the following was used: automated exposure control, adjustment of mA and/or kV according to patient size. COMPARISON: None. FINDINGS: Image quality: Diagnostic. Lower Chest: No significant findings. ABDOMEN: Liver: No contour-deforming mass. Gallbladder: No radiopaque gallstones or wall thickening. Biliary ducts: No biliary dilation. Pancreas: No ductal dilation. Spleen: Size is within normal limits. Adrenal Glands: No adrenal nodules. Kidneys and Ureters: Obstructing 1.3 x 0.8 cm stone in the right renal pelvis, resulting in moderate right-sided hydronephrosis and renal edema. Stomach and Bowel: Normal colonic caliber, without significant wall thickening. Colonic diverticulosis without evidence of diverticulitis. Peritoneum: Small amount of free fluid in the pelvis, probably reactive. Ventral Wall: No significant hernia. Abdominal Nodes: No retroperitoneal or mesenteric adenopathy by size criteria. Vessels: Aorta and inferior vena cava are normal in size. PELVIS: Pelvic Organs: Unremarkable. Bladder: Unremarkable. Pelvic Nodes: No enlarged lymph nodes. Miscellaneous: No inguinal hernias are seen. Bones: No aggressive osseous abnormality. IMPRESSION: Obstructing 1.3 x 0.8 cm stone in the right renal pelvis, resulting in moderate right-sided hydronephrosis and renal edema. Dictated by: Quinn Patiño M.D. on 04/25/2025 at 11:01 Approved by: Quinn Patiño M.D. on 04/25/2025 at 11:04
[2025-04-25 10:43] LABS: Add Manual Diff / Slide Review NO; Hematocrit 46.3 % (36-46); Hemoglobin 15.6 g/dL (12.0-16.0); Lymphocytes Absolute Auto 1600 /uL (1100-4500); Mean Corpuscular HGB Conc 33.7 % (30-36); Mean Corpuscular Hemoglobin 31.9 PG (26-34); Mean Corpuscular Volume 94.6 fL (80-100); Platelet Count 166 X10^3/uL (150-400)
[2025-04-25 10:56] LABS: Alanine Aminotransferase 26 IU/L (<35); Albumin 4.6 g/dL (3.5-5.0); Alkaline Phosphatase 78 U/L (38-126); Blood Urea Nitrogen 16 mg/dL (7-17); Chloride 105 mmol/L (98-107); Estimated Glomerular Filt Rate > 60 mL/min (>60); HEMOLYSIS < 15 (0-50); Lipase 52 U/L (23-300); Potassium 4.2 mmol/L (3.4-5.1); Sodium 142 mmol/L (137-145)
[2025-04-25] MEDS: LACTATED RINGERS 1,000 ML 1000 ML IV (11:15)
--- NOTE | 2025-04-25 11:32 | PC.NURSE ---
IV placed by another nurse
[2025-04-25 11:37] LABS: Albumin Globulin Ratio 1.5 (1.0-2.8); Calcium 9.6 mg/dL (8.4-10.2); Carbon Dioxide 26 mmol/L (22-32); Globulin 3.0 g/dL (1.7-4.1); Glucose 88 mg/dL (70-99); Total Protein 7.6 g/dL (6.3-8.2)
[2025-04-25] MEDS: TAMSULOSIN 0.4 MG CAPSULE PO (13:02)
[2025-04-25] MEDS: NITROFURANTOIN ER 100 MG CAPSULE PO (13:13)
== END 2025-04-25 13:16 | disposition home or self-care (01) ==
PROVIDERS: Emergency Provider Family Medicine; PCP Family Medicine
DX: N20.0 Calculus of kidney (principal)
CPT/HCPCS: 36415; 74176; 76700; 80053; 81003; 83690; 85025; 96360; 96361; 99284

== ENCOUNTER → 2025-04-29 14:48 | Outpatient (CLI) | payer MEDICARE, OTHER, SELFPAY | PROVIDERS: PCP Family Medicine; Visit Provider Urology | DX: R31.9 Hematuria, unspecified (principal) | CPT/HCPCS: 87086 ==

== ENCOUNTER 2025-07-09 10:31 | Emergency (ER) | payer MEDICARE, OTHER, SELFPAY ==
[2025-07-09 10:55] LABS: Appearance Urine UA CLOUDY; Bilirubin Urine UA NEGATIVE (NEGATIVE); Color Urine UA YELLOW; Glucose Urine UA NEGATIVE (Negative); Ketones Urine UA NEGATIVE (NEGATIVE); Leukocyte Esterase Urine UA 2+ (NEGATIVE); Nitrite Urine UA NEGATIVE (Negative); Occult Blood Urine UA 3+ (Negative); Protein Urine UA 3+ (Negative); Specific Gravity Urine UA 1.020 (1.000-1.035); Urobilinogen Urine UA 0.2 E.U./dL (0.2)
[2025-07-09 10:57] VITALS: BP 145/67; PULSE 75; RESP 18; TEMP 36.2; O2SAT 99; BMI 18.6
[2025-07-09 10:59] LABS: pH Urine UA 7.0 (4.5-8.0)
[2025-07-09 11:05] LABS: Culture Indicated Urine Specimen Cultured
--- NOTE | 2025-07-09 11:15 | PC.NURSE ---
Report received, care assumed.
--- NOTE | 2025-07-09 11:17 | ED_ITS ---
HPI - Back Pain/Injury General Chief Complaint: Urogenital-Female Stated Complaint: Left flank pain, post kidney procedure Time Seen by Provider: 07/09/25 11:07 Source: patient History of Present Illness HPI Narrative: Patient brought here by a friend for sudden onset this morning of left lower back pain. No nausea or vomiting no urinary urgency no hematuria. No urinary frequency. Patient feels like it hurts more with movement and walking. It is a sharp pain. Pain is not present when laying still. Patient has history of right ureteral stent placed here 2 months ago May 09, 2025 by Urology for large renal stone, had lithotripsy. Seen by Dr. Benedict. Related Data Home Medications ?Medication ?Instructions ?Recorded ?Confirmed ASPIRIN (#ASPIRIN E.C.) 81 mg PO Q DAY ##0 05/19/11 05/09/25 Previous Rx's ?Medication ?Instructions ?Recorded zoledronic acid 5 mg/100 mL in See Rx Instructions IV ONCE 01/29/25 mannitol 5 %-water intravenous piggybck hydrocodone 5 mg-acetaminophen 325 1 tab PO Q4-6H PRN pain #20 tabs 04/25/25 mg tablet oxycodone 5 mg tablet 5 mg PO Q8H PRN pain (scale score 05/09/25 7-10) #7 tabs atenolol 25 mg tablet 25 mg PO DAILY #90 tabs 02/09 nortriptyline 10 mg capsule 10 mg PO QPM #90 caps 02/09 Allergies Allergy/AdvReac Type Severity Reaction Status Date / Time No Known Drug Allergies Allergy Verified 07/09/25 10:57 Review of Systems Review of Systems Narrative: GENERAL: Negative chills, fatigue, malaise, fever, sweats. HEENT: Negative sinus pain, ear pain, sore throat RESPIRATORY: Negative dyspnea, cough CARDIOVASCULAR: Negative chest pain, palpitations GASTROINTESTINAL: Negative vomiting, nausea, abdominal pain : Negative dysuria, frequency, hematuria MUSCULOSKELETAL: Positive back, muscle or bony pain SKIN: Negative rash, skin lesions NEUROLOGIC: Negative weakness, numbness ROS Unobtainable: All systems reviewed & are unremarkable except as noted in HPI and below Patient History Medical History (Updated 07/09/25 @ 14:40 by Jimmie Vargas MD) Raynauds phenomenon Onychomycosis Osteoporosis IBS (irritable bowel syndrome) Carotid artery plaque Hypertension Hematochezia Nephrolithiasis Surgical History (Updated 07/07/25 @ 14:08 by Yocasta Morton RN) Hx of cystoscopy (05/09/25) Hx of bilateral mastectomy (2012) Hx of total hysterectomy (1987) Hx of appendectomy Social History Smoking Status: Never smoker alcohol intake: current Smoking Status: Never smoker Exam Narrative Exam Narrative: GENERAL: in no distress, not toxic not dyspneic HEAD: Normocephalic. EYES: Pupils equal round ENT: Mucous membranes moist. NECK: Trachea midline. CARDIOVASCULAR: Regular rate and rhythm RESPIRATORY: Clear to auscultation. Breath sounds equal bilaterally. No wheezes, rales, or rhonchi. GASTROINTESTINAL: Abdomen soft, non-tender EXTREMITIES: No gross deformities. BACK: No flank tenderness. Reproducible left lower paralumbar muscle tenderness with movement and rolling to the left and right. No midline tenderness or step-off of the cervical thoracic or lumbar spine. No rash on the back.. No pain with straight leg raise bilaterally. NEURO: AOx4. Clear speech, strong bilateral patellar reflexes and ankle flexion- extension SKIN: Warm and dry PSYCH: Not anxious, is cooperative Initial Vital Signs Initial Vital Signs: Vital Signs Temperature 97.1 F L 07/09/25 10:57 Pulse Rate 75 07/09/25 10:57 Respiratory Rate 18 07/09/25 10:57 Blood Pressure 145/67 H 07/09/25 10:57 Pulse Oximetry 99 07/09/25 10:57 Oxygen Delivery Method Room Air 07/09/25 10:57 Course Orders Ordered: ED Orders 07/09/25 10:44 Urinalysis and Microscopic Stat Urine Culture Stat 07/09/25 11:15 CT kidney ureter bladder (KUB) Stat 07/09/25 11:55 CBC Auto Diff [Complete Blood Count AUTO DIFF] Stat CMP [Comprehensive Metabolic Panel] Stat Discontinued Medications Ketorolac Tromethamine (Ketorolac 30 Mg/Ml Vial) 15 mg IV NOW ONE Stop: 07/09/25 13:31 Last Admin: 07/09/25 14:08 Dose: 15 mg Documented By: ELIECER Vital Signs Vital signs: Vital Signs - 8 hr 07/09/25 15:12 Pulse Rate 82 Respiratory Rate 16 Blood Pressure 177/86 H Pulse Oximetry 100 Oxygen Delivery Method Room Air MDM - Back Pain/Injury Lab Data 07/09/25 11:55 07/09/25 11:55 Labs: Lab Results 07/09/25 07/09/25 Range/Units 10:44 11:55 WBC 6.3 (4.5-11.0) X10^3/uL RBC 4.57 (4.0-5.2) X10^6/uL Hgb 14.3 (12.0-16.0) g/dL Hct 42.5 (36-46) % MCV 93.0 (80-100) fL MCH 31.3 (26-34) PG MCHC 33.6 (30-36) % RDW 14.1 (11.6-14.8) % Plt Count 151 (150-400) X10^3/uL Neut % (Auto) 64.1 (50-75) % Lymph % (Auto) 24.2 L (25-40) % [place] % (Auto) 6.9 (3-14) % Eos % (Auto) 4.3 H (2-4) % Baso % (Auto) 0.5 (0-2) % Neut # (Auto) 4100 (7839-6095) /uL Lymph # (Auto) 1500 (3009-4301) /uL [place] # (Auto) 400 (0-900) /uL Eos # (Auto) 300 (0-450) /uL Baso # (Auto) 0 (0-100) /uL Sodium 139 (137-145) mmol/L Potassium 4.1 (3.4-5.1) mmol/L Chloride 108 H (98-107) mmol/L Carbon Dioxide 24 (22-32) mmol/L BUN 16 (7-17) mg/dL Creatinine 1.00 (0.52-1.04) mg/dL Estimated GFR 56 L (>60) mL/min BUN/Creatinine Ratio 16.0 (6-22) Glucose 91 (70-99) mg/dL Calcium 9.7 (8.4-10.2) mg/dL Total Bilirubin 0.7 (0.2-1.3) mg/dL AST 26 (14-36) IU/L ALT 19 (<35) IU/L Alkaline Phosphatase 70 (38-126) U/L Total Protein 6.6 (6.3-8.2) g/dL Albumin 3.9 (3.5-5.0) g/dL Globulin 2.7 (1.7-4.1) g/dL Albumin/Globulin Ratio 1.4 (1.0-2.8) Urine Color Yellow Urine Appearance Cloudy Urine pH 7.0 (4.5-8.0) Ur Specific [place] 1.020 (1.000-1.035) Urine Protein 3+ H (Negative) Urine Glucose (UA) Negative (Negative) g/dL Urine Ketones Negative (NEGATIVE) Urine Occult Blood 3+ H (Negative) Urine Nitrate Negative (Negative) Urine Bilirubin Negative (NEGATIVE) Urine Urobilinogen 0.2 (0.2) E.U./dL Ur Leukocyte Esterase 2+ H (NEGATIVE) Urine RBC 30-100/hpf H (0-5/HPF) Urine WBC 1-5/hpf (0-5/HPF) Ur Squamous Epith Cells 1-5 /hpf (0-5/HPF) Urine Bacteria Few (2-10) H (None) Ur Culture Indicated? Specimen cultured Vol Urine Centrifuged 10ml (spun) Imaging Data CT scan - abdomen/pelvis: Radiologist's Impression: [place] [address] CT Scan Report Signed Patient: Ciera Bueno MR#: [id number] : 1945 Acct:[id number] Age/Sex: 80 / F Date of Service: 07/09/25 Loc: ED Accession Number: [id number] Procedure: CT kidney ureter bladder (KUB) Ordering Provider: Jimmie Vargas MD PROCEDURE: CT KIDNEY URETER BLADDER (KUB) INDICATIONS: Left flank pain TECHNIQUE: Axial sections were acquired from the lung bases to the pubic symphysis. Coronal and sagittal reformats were performed. For radiation dose reduction, the following was used: automated exposure control, adjustment of mA and/or kV according to patient size. COMPARISON: [facility], CT, CT KIDNEY URETER BLADDER (KUB), 04/25/2025, 10:53. FINDINGS: Image quality: Diagnostic. Lower Chest: No significant findings. URINARY: Right Kidney: Previous large renal pelvic stone no longer present. It had measured approximately 13 x 9 mm. There is now a double-J ureteral stent. There is no significant residual right hydronephrosis. Small, punctate nonobstructing stones are present. Right Ureter: Ureteral stent in place. Ureter is collapsed over the stent. Pigtails are in appropriate position. No identifiable stones along the course of the stent. Left Kidney: No stones or hydronephrosis. Left Ureter: No hydroureter. Bladder: Normal wall thickness. No stones. ABDOMEN: Liver: No contour-deforming solid mass. Gallbladder: No radiopaque gallstones or wall thickening. Biliary ducts: No biliary dilation. Pancreas: No ductal dilation. Spleen: Size is within normal limits. Adrenal Glands: No adrenal nodules. Stomach and Bowel: Normal colonic caliber, without significant wall thickening. Advanced sigmoid diverticulosis without CT evidence of acute diverticulitis. Peritoneum: Trace pelvic ascites. No free air. Ventral Wall: No hernia. Abdominal Nodes: No enlarged retroperitoneal or mesenteric lymph nodes. Vessels: Aorta and inferior vena cava are normal in size. PELVIS: Pelvic Organs: Question hysterectomy. Pelvic Nodes: Unremarkable. Miscellaneous: No inguinal hernias are seen. Bones: Lumbar degenerative change. No lytic or blastic bony lesions. No compression fractures. IMPRESSION: 1. Interval right lithotripsy and placement of ureteral stent with no residual right hydronephrosis. 2. Multiple punctate nonobstructing right renal stones. 3. Left kidney and ureter are unremarkable. 4. Advanced diverticulosis, trace pelvic ascites. Comment: If suspect acute diverticulitis, consider repeat study with IV contrast. Dictated by: Orlando Gotti M.D. on 07/09/2025 at 11:46 Approved by: Orlando Gotti M.D. on 07/09/2025 at 11:51 [facility] [place] Narrative Medical decision making narrative: Patient brought here by a friend for sudden onset this morning of left lower back pain. No nausea or vomiting no urinary urgency no hematuria. No urinary frequency. Patient feels like it hurts more with movement and walking. It is a sharp pain. Pain is not present when laying still. Patient has history of right ureteral stent placed here 2 months ago May 09, 2025 by Urology for large renal stone, had lithotripsy. Seen by Dr. Benedict. [facility] [place] After history and exam, CT KUB here analysis CBC CMP, pain is controlled patient does not want anything for pain Differential considered: Includes but not limited to ureteral stone pyelonephritis UTI compression fracture degenerative disc disease Medical records reviewed: May 09, 2025 urology operative notes Lab Test results independently reviewed as above. Pertinent findings: WBC 6.3 hemoglobin 14 sodium 139 potassium 4.1 BUN 16 creatinine 1.0 urinalysis positive blood 2+ leukocyte esterase negative nitrate Imaging studies independently reviewed: CT abdomen pelvis no acute finding Consultations: None indicated at this time Re-evaluations: 2:40 p.m.. Patient is symptom free now after Toradol. Patient up and walking without lower back pain on the left. Reviewed results with her and likely a pinched nerve or muscular spasm. Return precautions reviewed and she desires discharge home. Discussion: Appropriate for discharge home. Patient feeling much better after Toradol. Likely musculoskeletal pain. Laboratory studies and imaging studies reassuring. Patient has no urinary complaints. No antibiotics indicated at this time. Patient has no right side pain. Diagnosis: Acute low back pain Discharge Plan Departure Patient Disposition: Home Clinical Impression: Low back pain Qualifiers: Chronicity: acute Back pain laterality: left Sciatica presence: without sciatica Qualified Code(s): M54.50 - Low back pain, unspecified Instructions: DI for Low Back Pain Activity Restrictions/Additional Instructions: Your exam and laboratory studies and CAT scan imaging are reassuring. Your back pain is likely related to pinched nerve or muscle spasm. Please do continue Tylenol or ibuprofen for pain. See your family doctor this week for re- evaluation. Return if worse if any questions or concerns Prescriptions: No Action ASPIRIN (#ASPIRIN E.C.) 81 mg PO Q DAY Qty: 0 zoledronic [id number] 5 mg/100 mL piggyback See Rx Instructions IV ONCE Rx Instructions: 5 mg intravenously once; administer over at least 15 mins nortriptyline 10 mg capsule 10 mg PO QPM Qty: 90 0RF atenolol 25 mg tablet 25 mg PO DAILY Qty: 90 0RF hydrocodone-acetaminophen 5-325 mg tablet 1 tab PO Q4-6H PRN (Reason: pain) Qty: 20 0RF Patient Comments: post op oxycodone 5 mg tablet 5 mg PO Q8H PRN (Reason: pain (scale score 7-10)) Qty: 7 0RF Referrals: Natacha Matthew MD [Primary Care Provider, Family Practice] Stand Alone Forms: Patient Portal/API
[2025-07-09 12:10] LABS: Add Manual Diff / Slide Review NO; Hematocrit 42.5 % (36-46); Hemoglobin 14.3 g/dL (12.0-16.0); Lymphocytes Absolute Auto 1500 /uL (1100-4500); Mean Corpuscular HGB Conc 33.6 % (30-36); Mean Corpuscular Hemoglobin 31.3 PG (26-34); Mean Corpuscular Volume 93.0 fL (80-100); Platelet Count 151 X10^3/uL (150-400)
[2025-07-09 12:21] LABS: Alanine Aminotransferase 19 IU/L (<35); Albumin 3.9 g/dL (3.5-5.0); Albumin Globulin Ratio 1.4 (1.0-2.8); Alkaline Phosphatase 70 U/L (38-126); Blood Urea Nitrogen 16 mg/dL (7-17); Calcium 9.7 mg/dL (8.4-10.2); Carbon Dioxide 24 mmol/L (22-32); Chloride 108 mmol/L (98-107); Estimated Glomerular Filt Rate 56 mL/min (>60); Globulin 2.7 g/dL (1.7-4.1); Glucose 91 mg/dL (70-99); HEMOLYSIS < 15 (0-50); Potassium 4.1 mmol/L (3.4-5.1); Sodium 139 mmol/L (137-145); Total Protein 6.6 g/dL (6.3-8.2)
[2025-07-09] MEDS: KETOROLAC 30 MG/ML VIAL 15 MG IV (14:08)
[2025-07-09 15:12] VITALS: BP 177/86; PULSE 82; RESP 16; O2SAT 100
== END 2025-07-09 15:13 | disposition home or self-care (01) ==
PROVIDERS: Emergency Provider Emergency Medicine; PCP Family Medicine
DX: M54.50 Low back pain, unspecified (principal); R10.A2 Flank pain, left side
CPT/HCPCS: 36415; 74176; 80053; 81001; 85025; 87086; 96374; 99284; J1885

== ENCOUNTER → 2025-07-11 12:28 | Outpatient (CLI) | payer MEDICARE, OTHER, SELFPAY | PROVIDERS: PCP Family Medicine; Visit Provider Urology | DX: R39.9 Unspecified symptoms and signs involving the genitourinary system (principal) | CPT/HCPCS: 87086 ==

== ENCOUNTER 2025-07-18 06:17 | Day surgery (SDC) | payer MEDICARE, OTHER, SELFPAY ==
[2025-07-18] VITALS (10 sets, daily range): BP systolic 136–189; BP diastolic 67–97; PULSE 67–80; RESP 16–20; TEMP 36.1–36.7; O2SAT 95–100
[2025-07-18] MEDS: LACTATED RINGERS 1,000 ML 21 ML IV (06:54)
[2025-07-18] MEDS: ACETAMINOPHEN 325 MG TABLET 975 MG PO (06:58)
--- NOTE | 2025-07-18 07:36 | PM.PREOP ---
Pre-operative Note COVID-19 COVID-19 status: Not tested Interval Note History & Physical reviewed/Exam performed by Physician: Yes Changes to H&P: No
--- NOTE | 2025-07-18 08:08 | SUR.OPER ---
Lithotomy on padded OR bed, head on pillow, arms secured on padded arm boards at <90 degrees abduction. Legs secured in padded yellow fins stirrups.
--- NOTE | 2025-07-18 08:37 | PM.OP.1 ---
Operative Date/Time/Diagnoses Date of procedure: 07/18/25 Time of procedure: 08:00 Pre-op diagnosis: Right ureteral calculus Post-op diagnosis: same Procedure & Clinicians Procedure: Cystoscopy Right retrograde ureteropyelogram Right ureteroscopy, laser lithotripsy Right ureteral stent exchange Intraoperative interpretation of fluoroscopic images, total time < 1 hour Same procedure(s) as scheduled: Yes Indications: 80 y/o F w/ a 1.3cm right UPJ calculus with resultant moderate hydronephrosis in Apr who underwent a cystoscopy with right ureteroscopy, laser lithotripsy and right ureteral stent placement who returns today to discuss a second look right ureteroscopy. Discussed treatment options to include a cystoscopy with removal of her right ureteral stent (not recommended as she would have to pass the stone fragments on her own) vs cystoscopy, right ureteroscopy, laser lithotripsy with right ureteral stent exchange. Discussed risks of the procedure to include but not limited to pain, bleeding, infection, injury to urethra/bladder/ureter, inability to access the ureter requiring discussion with Interventional Radiology regarding a possible ureteral stent placement in an antegrade fashion vs a possible nephroureteral stent and/or percutaneous nephrostomy tube, urinary tract infection, inability to remove all of the stone in one setting, need for emergent open repair of bladder and/or ureter, need for multiple ureteroscopic interventions necessary to render the patient stone free. She ultimately elected to move forward with a second look right ureteroscopy. Surgeon: Castro Benedict Assisted?: No Anesthesia Type: General Operative Notes Findings: Several moderate sized stone fragments within right renal collecting system Closure Type: not applicable Specimen(s): other (right ureteral stone) Applied: none Estimated Blood Loss (mL): 2 Blood products transfused: none Procedure in detail: 1) Cystoscopy 2) Right retrograde ureteropyelogram 3) Right ureteroscopy, laser lithotripsy 4) Right ureteral stent exchange 5) Intraoperative interpretation of fluoroscopic images, < 1 hour, all images saved to PACS Indication: Patient was identified in the preoperative holding area and consent confirmed. She was then brought to the operating room where general anesthesia was induced.? She was placed in the low lithotomy position. She was then prepped and draped in the usual sterile fashion. A surgical timeout was conducted and all were in agreement. ?Access to the bladder was obtained via a 30 degree cystoscope.? Complete cystoscopy was then performed and no concerning bladder masses or lesions were appreciated.? Bilateral ureteral orifices were easily identified and noted to be orthotopic in nature.? The previously placed right ureteral stent was externalized and a 0.035 sensor tip ureteral guidewire was advanced through the ureteral stent and into the right renal collecting system. A 12/14Fr ureteral access sheath was then advanced over the ureteral guidewire and into the proximal right ureter.? The ureteral guidewire and inner obturator were then removed.? The flexible ureteroscope was then advanced through the ureteral access sheath and to the level of the right UPJ where several moderate stone fragments were noted.? Complete pyeloscopy was then performed and no other uroliths were appreciated. Laser lithotripsy was then performed utilizing the 200 micron laser fiber.? All stone fragments >1mm in size were removed via the stone basket. A retrograde ureteropyelogram was then performed which noted no contrast extravasation. The ureteral guidewire was then readvanced through the ureteroscope and into the right renal pelvis.? The ureter was then directly visualized upon removal of the ureteroscope and ureteral access sheath and noted to be stone free.? The cystoscope was then backloaded over the ureteral guidewire and advanced into the bladder.? A 6Fr multi-length JJ ureteral stent with strings was then advanced over the ureteral guidewire.? Upon removal of the guidewire, a good curl was noted within the right renal pelvis upon fluoroscopy and visually within the bladder.? The bladder was then drained and the cystoscope was removed.? Anesthesia was reversed, she was extubated in the OR and transferred to the PACU in stable condition for recovery. Complications: none Post-operative Condition: stable Disposition: PACU Plan for aftercare: Discharge home from PACU. Will return to Urology clinic in 3 months for a RBUS and stone analysis review.
--- NOTE | 2025-07-18 08:55 | DI.RAD.S_ITS ---
PROCEDURE: XR ABDOMEN 1V INDICATIONS: STENT TECHNIQUE: 3 intra-operative images acquired by the Urology service. COMPARISON: [facility], CR, XR ABDOMEN 1V, 05/09/2025, 10:26. FINDINGS/IMPRESSION: Intraoperative views during right ureteral stent placement. Please refer to operative note Dictated by: Fermin Joaquin M.D. on 07/19/2025 at 14:12 Approved by: Fermin Joaquin M.D. on 07/19/2025 at 14:12
[2025-07-18] MEDS: PHENAZOPYRIDINE 100 MG TABLET 200 MG PO (09:32)
--- NOTE | 2025-07-18 10:10 | SUR.PHASEII ---
patient wheeled in a wheelchair to the bathroom. patient able to urinate with no difficulty. patient reports a pain of 9/10 in her pee hole. patient placed back in the stretcher with warm blankets.
[2025-07-18] MEDS: KETOROLAC 30 MG/ML VIAL IM (10:39)
[2025-07-18] MEDS: TAMSULOSIN 0.4 MG CAPSULE PO (10:39)
--- NOTE | 2025-07-18 11:04 | SUR.PHASEII ---
bladder scan for patient was 675. dr. lyons aware. order for indwelling diaz.
[2025-07-18] MEDS: LIDOCAINE 2% (GLYDO) 6 ML GEL TOP (11:06)
== END 2025-07-18 12:10 | disposition home or self-care (01) ==
PROVIDERS: PCP Family Medicine; Referring Provider Urology; Visit Provider Urology
PROC: 0TF68ZZ Fragmentation in Right Ureter, Via Natural or Artificial Opening Endoscopic (ICD-10-PCS; CPT 52353; principal; 2025-07-18 07:45)
DX: N20.1 Calculus of ureter (principal); Z79.82 Long term (current) use of aspirin
CPT/HCPCS: 52356; 74018; 74420; 76000; 82365; C2617; J0689; J1100; J1885; J2405; J2704; J3010; J7120; Q9967

== ENCOUNTER → 2025-07-25 14:31 | Outpatient (CLI) | payer MEDICARE, OTHER, SELFPAY | PROVIDERS: PCP Family Medicine; Visit Provider Urology | DX: R39.9 Unspecified symptoms and signs involving the genitourinary system (principal) | CPT/HCPCS: 87086 ==

== ENCOUNTER 2025-07-30 09:47 | Emergency (ER) | payer MEDICARE, OTHER, SELFPAY ==
[2025-07-30 09:50] VITALS: BP 107/80; PULSE 80; RESP 14; TEMP 36.6; O2SAT 100; BMI 18.0
--- NOTE | 2025-07-30 09:58 | DI.CT.S_ITS ---
PROCEDURE: CT KIDNEY URETER BLADDER (KUB) INDICATIONS: L flank pain, hematuria, had ureteral stent removed Monday TECHNIQUE: Axial sections were acquired from the lung bases to the pubic symphysis. Coronal and sagittal reformats were performed. For radiation dose reduction, the following was used: automated exposure control, adjustment of mA and/or kV according to patient size. COMPARISON: [facility], CT, CT KIDNEY URETER BLADDER (KUB), 07/09/2025, 11:38. [facility], CR, XR ABDOMEN 1V, 07/18/2025, 8:09. [facility], CT, CT KIDNEY URETER BLADDER (KUB), 04/25/2025, 10:53. [facility], CR, XR ABDOMEN 1V, 05/09/2025, 10:26. FINDINGS: Image quality: Diagnostic. Lower Chest: No significant findings. URINARY: Right Kidney: Nonobstructing right-sided kidney stones are seen with the largest measuring 3 mm. No right-sided hydronephrosis is seen. Right Ureter: No hydroureter. Pelvic phleboliths are incidentally noted. Left Kidney: No stones or hydronephrosis. Left Ureter: No hydroureter. Pelvic phleboliths are incidentally noted. Bladder: Normal wall thickness. No stones. ABDOMEN: Liver: No contour-deforming solid mass. Gallbladder: No radiopaque gallstones or wall thickening. Biliary ducts: No biliary dilation. Pancreas: No ductal dilation. Spleen: Size is within normal limits. Adrenal Glands: No adrenal nodules. Stomach and Bowel: Normal colonic caliber, without significant wall thickening. Colonic diverticulosis is seen, without findings of active diverticulitis. No dilated loops of small bowel are seen. Peritoneum: No abnormal intraperitoneal fluid. No free air. Ventral Wall: No hernia. Abdominal Nodes: No enlarged retroperitoneal or mesenteric lymph nodes. Vessels: Aorta and inferior vena cava are normal in size. Atherosclerotic calcification is noted. PELVIS: Pelvic Organs: No adnexal masses are seen on either side. Pelvic Nodes: Unremarkable. Miscellaneous: No inguinal hernias are seen. Bones: Unremarkable. IMPRESSION: No imaging explanation is found for this patient's presenting symptoms. Is no hydronephrosis is seen on either side. Nonobstructing right-sided kidney stones are seen. Additional findings: Diverticulosis, without active diverticulitis Bilateral pelvic phleboliths Dictated by: Jean Lechuga M.D. on 07/30/2025 at 9:49 Approved by: Jean Lechuga M.D. on 07/30/2025 at 9:51
--- NOTE | 2025-07-30 09:59 | ED.FEMALEGU ---
HPI - Female Genitourinary General Chief complaint: Urogenital-Female Stated complaint: left side pain- sent from Dr. Benedict Time Seen by Provider: 07/30/25 09:56 Source: patient, RN notes reviewed and old records reviewed Mode of arrival: Ambulatory Limitations: no limitations History of Present Illness HPI Narrative: 80-year-old female history of nephrolithiasis with lithotripsy and ureteral stent on the right side placed in April, stent was removed a proximally week ago by Dr. Benedict. Patient is also on aspirin daily. Patient presents with complaint of hematuria throughout the last 2 or 3 days she has had chronic hematuria but was worse she states it is improved today. And she developed left flank pain about 2 hours prior. She states it does not radiate to the front, no pain down her leg. She states she did not have pain prior to her ureteral stent she just has a large kidney stone that was present. She denies any fevers. No nausea or vomiting. States she is stooling regularly. No black or bloody stools otherwise. She denies any dysuria, urgency or frequency. She states she is on aspirin, atenolol and nortriptyline daily. She was sent prescriptions for [place] and oxycodone which she has a available but has not taken. She has had prior hysterectomy and appendectomy as well as the lithotripsy and ureteral stents in April. Patient denies any drug allergies. No tobacco, alcohol or recreational drugs. Dr. Benedict is her urologist. Dr. Matthew is her primary care physician. Patient did reach out to urology today. Related Data Home Medications ?Medication ?Instructions ?Recorded ?Confirmed ASPIRIN (#ASPIRIN E.C.) 81 mg PO Q DAY ##0 05/19/11 07/25/25 Previous Rx's ?Medication ?Instructions ?Recorded zoledronic acid 5 mg/100 mL in See Rx Instructions IV ONCE 01/29/25 mannitol 5 %-water intravenous piggybck atenolol 25 mg tablet 25 mg PO DAILY #90 tabs 05/23/25 nortriptyline 10 mg capsule 10 mg PO QPM #90 caps 05/23/25 levofloxacin 500 mg tablet 500 mg PO DAILY #3 tabs 07/18/25 oxycodone 5 mg tablet 5 mg PO Q8H PRN pain (scale score 07/18/25 7-10) #7 tabs levofloxacin 750 mg tablet 750 mg PO DAILY 10 days #10 tabs 07/30/25 Allergies Allergy/AdvReac Type Severity Reaction Status Date / Time No Known Drug Allergies Allergy Verified 07/30/25 09:50 Review of Systems Review of Systems ROS Unobtainable: All systems reviewed & are unremarkable except as noted in HPI and below Patient History Medical History Raynauds phenomenon Onychomycosis Osteoporosis IBS (irritable bowel syndrome) Carotid artery plaque Hypertension Hematochezia Nephrolithiasis Surgical History Hx of cystoscopy (05/09/25) Hx of bilateral mastectomy (2012) Hx of total hysterectomy (1987) Hx of appendectomy Exam Narrative Exam Narrative: GENERAL: Alert and oriented x three, female in moderate distress HEENT: Head normocephalic, atraumatic, EOMI, pupils reactive, face symmetric, moist mucous membranes NECK: Supple, full range of motion CARDIOVASCULAR: Regular rate and rhythm without murmurs, rubs or gallops. RESPIRATORY: Breath sounds equal bilaterally, no wheezes rales or rhonchi. ABDOMEN: Soft, nontender. Normoactive bowel sounds all 4 quadrants. No guarding or rebound, rigidity, no mass, no pulsatile mass or bruit : Positive left CVA tenderness, no right CVA tenderness. No warmth erythema or skin changes. EXTREMITIES: Normal range of motion, no clubbing or edema. Neurovascularly intact NEUROLOGICAL: Cranial nerves II through XII grossly intact. Moving all extremities SKIN: Warm, dry, no petechiae, no rashes or lesions. Initial Vital Signs Initial Vital Signs: Vital Signs Temperature 97.8 F 07/30/25 09:50 Pulse Rate 80 07/30/25 09:50 Respiratory Rate 14 07/30/25 09:50 Blood Pressure 107/80 07/30/25 09:50 Pulse Oximetry 100 07/30/25 09:50 Oxygen Delivery Method Room Air 07/30/25 09:50 Course Orders Ordered: ED Orders 07/30/25 09:58 CT kidney ureter bladder (KUB) Stat 07/30/25 10:02 Urinalysis and Microscopic Stat Urine Culture Stat 07/30/25 10:10 CBC Auto Diff [Complete Blood Count AUTO DIFF] Stat CMP [Comprehensive Metabolic Panel] Stat Lipase Stat Discontinued Medications Sodium Chloride (Normal Saline 0.9%) 1,000 mls @ 1,000 mls/hr IV BOLUS ONE Stop: 07/30/25 12:12 Last Admin: 07/30/25 11:20 Dose: 1,000 mls/hr Documented By: ELILE Ketorolac Tromethamine (Ketorolac 30 Mg/Ml Vial) 15 mg IV NOW ONE Stop: 07/30/25 11:05 Last Admin: 07/30/25 11:10 Dose: 15 mg Documented By: BREANNA Levofloxacin (Levofloxacin 250 Mg Tablet) 750 mg PO NOW ONE Stop: 07/30/25 11:04 Last Admin: 07/30/25 11:10 Dose: 750 mg Documented By: BREANNA Vital Signs Vital signs: Vital Signs - 8 hr 07/30/25 09:50 07/30/25 12:02 Temperature 97.8 F Pulse Rate 80 77 Respiratory Rate 14 16 Blood Pressure 107/80 179/97 H Pulse Oximetry 100 99 Oxygen Delivery Method Room Air Room Air MDM - Female Genitourinary Lab Data 07/30/25 10:10 07/30/25 10:10 Labs: Lab Results 07/30/25 07/30/25 Range/Units 10:02 10:10 WBC 9.0 (4.5-11.0) X10^3/uL RBC 4.72 (4.0-5.2) X10^6/uL Hgb 14.7 (12.0-16.0) g/dL Hct 43.7 (36-46) % MCV 92.7 (80-100) fL MCH 31.3 (26-34) PG MCHC 33.7 (30-36) % RDW 13.8 (11.6-14.8) % Plt Count 183 (150-400) X10^3/uL Neut % (Auto) 69.8 (50-75) % Lymph % (Auto) 21.1 L (25-40) % [place] % (Auto) 6.6 (3-14) % Eos % (Auto) 1.7 L (2-4) % Baso % (Auto) 0.8 (0-2) % Neut # (Auto) 6300 (4066-5502) /uL Lymph # (Auto) 1900 (4789-4540) /uL [place] # (Auto) 600 (0-900) /uL Eos # (Auto) 200 (0-450) /uL Baso # (Auto) 100 (0-100) /uL Sodium 139 (137-145) mmol/L Potassium 4.0 (3.4-5.1) mmol/L Chloride 104 (98-107) mmol/L Carbon Dioxide 24 (22-32) mmol/L BUN 11 (7-17) mg/dL Creatinine 0.79 (0.52-1.04) mg/dL Estimated GFR > 60 (>60) mL/min BUN/Creatinine Ratio 13.9 (6-22) Glucose 87 (70-99) mg/dL Calcium 9.4 (8.4-10.2) mg/dL Total Bilirubin 1.1 (0.2-1.3) mg/dL AST 40 H (14-36) IU/L ALT 34 (<35) IU/L Alkaline Phosphatase 94 (38-126) U/L Total Protein 7.6 (6.3-8.2) g/dL Albumin 4.5 (3.5-5.0) g/dL Globulin 3.1 (1.7-4.1) g/dL Albumin/Globulin Ratio 1.5 (1.0-2.8) Lipase 59 (23-300) U/L Urine Color Yellow Urine Appearance Clear Urine pH 6.5 (4.5-8.0) Ur Specific [place] <=1.005 (1.000-1.035) Urine Protein Trace H (Negative) Urine Glucose (UA) Negative (Negative) g/dL Urine Ketones Negative (NEGATIVE) Urine Occult Blood 3+ H (Negative) Urine Nitrate Negative (Negative) Urine Bilirubin Negative (NEGATIVE) Urine Urobilinogen 0.2 (0.2) E.U./dL Ur Leukocyte Esterase 2+ H (NEGATIVE) Urine RBC 30-100/hpf H (0-5/HPF) Urine WBC 5-10/hpf H (0-5/HPF) Ur Squamous Epith Cells 1-5 /hpf (0-5/HPF) Ur Transition Epith Cell 1-5/hpf (0-5/HPF) Ur Renal Epithelial Cell 1-5/hpf H (0-1/HPF) Urine Bacteria None seen (None) Ur Culture Indicated? Specimen cultured Vol Urine Centrifuged 10ml (spun) MDM Narrative Medical decision making narrative: Labs, normal white count, hemoglobin and platelets, chemistries are appropriate BUN and creatinine normal glucose is 87 AST is 40, ALT bilirubin alk-phos are all normal lipase is normal at 59. Urinalysis shows trace protein 3+ blood negative for nitrates 2+ leukocyte esterase 3200 RBCs 5-10 white cells 1-5 squamous 1-5 transitional epithelial, 1-5 renal epithelials no bacteria was sent for culture CT KUB, that has no hydro seen on either side nonobstructing right kidney stones or seen, diverticulosis without active diverticulitis bilateral pelvic phleboliths. Patient took 1 tablet of oxycodone 5 mg (patients own). On recheck, patient is improved but still has pain. Given additional dose of Toradol. Patient given Levaquin. Spoke with Dr. Benedict, urology @ [phone]. Reviewed findings from today patient has a left flank pain her procedure was on the right side. He reviewed patient's imaging as well because patient has about a week postprocedure would prefer fluoroquinolone for treatment. And we will have patient follow up. On recheck patient is feeling much much improved and much more comfortable. Reviewed all of her findings plan for antibiotics, return precautions all questions answered. Patient feels comfortable with this plan. Discharge Plan Departure Patient Disposition: Home Clinical Impression: Pyelonephritis Instructions: DI for Kidney Infection Activity Restrictions/Additional Instructions: Your workup today shows changes consistent with pyelonephritis or kidney infection. I did talk with your urologist Dr. Benedict. Please reach out to their office this week. Take oral antibiotics as prescribed you have received your 1st dose here in the department. Prescription sent to [facility] in [place]. You can take [place] 1-2 tablets every 6 hours or your oxycodone 1-2 tablets every 6 hours as needed for pain. If you are taking oxycodone you can take acetaminophen up to a 1000 mg every 6 hours with a his medication. You can also take ibuprofen up to 600 mg every 6 hours with this medication and/or the [place]. Please return if you develop fevers, worsening abdominal back or flank pain, any vomiting, lightheadedness or passing out, difficulty or inability urinate or other new or concerning changes. Prescriptions: New levofloxacin 750 mg tablet 750 mg PO DAILY 10 Days Qty: 10 0RF No Action ASPIRIN (#ASPIRIN E.C.) 81 mg PO Q DAY Qty: 0 zoledronic alcx-ynmtvryr-losui 5 mg/100 mL piggyback See Rx Instructions IV ONCE Rx Instructions: 5 mg intravenously once; administer over at least 15 mins nortriptyline 10 mg capsule 10 mg PO QPM Qty: 90 0RF atenolol 25 mg tablet 25 mg PO DAILY Qty: 90 0RF oxycodone 5 mg tablet 5 mg PO Q8H PRN (Reason: pain (scale score 7-10)) Qty: 7 0RF levofloxacin 500 mg tablet 500 mg PO DAILY Qty: 3 0RF Rx Instructions: take one tab the morning before, the morning of and the morning after your stent removal Referrals: Castro Benedict DO [Physician, Urology] Natacha Matthew MD [Primary Care Provider, Family Practice] Stand Alone Forms: Patient Portal/API
--- NOTE | 2025-07-30 10:10 | PC.NURSE ---
Pt had stent and catheter removed Monday following a lithotripsy in April. Pt now having severe left flank pain and blood in urine.
[2025-07-30 10:13] LABS: Appearance Urine UA CLEAR; Bilirubin Urine UA NEGATIVE (NEGATIVE); Color Urine UA YELLOW; Glucose Urine UA NEGATIVE (Negative); Ketones Urine UA NEGATIVE (NEGATIVE); Leukocyte Esterase Urine UA 2+ (NEGATIVE); Nitrite Urine UA NEGATIVE (Negative); Occult Blood Urine UA 3+ (Negative); Protein Urine UA TRACE (Negative); Specific Gravity Urine UA <=1.005 (1.000-1.035); Urobilinogen Urine UA 0.2 E.U./dL (0.2)
[2025-07-30 10:16] LABS: Add Manual Diff / Slide Review NO; Hematocrit 43.7 % (36-46); Hemoglobin 14.7 g/dL (12.0-16.0); Lymphocytes Absolute Auto 1900 /uL (1100-4500); Mean Corpuscular HGB Conc 33.7 % (30-36); Mean Corpuscular Hemoglobin 31.3 PG (26-34); Mean Corpuscular Volume 92.7 fL (80-100); Platelet Count 183 X10^3/uL (150-400)
[2025-07-30 10:17] LABS: pH Urine UA 6.5 (4.5-8.0)
[2025-07-30 10:21] LABS: Culture Indicated Urine Specimen Cultured
[2025-07-30 10:29] LABS: Alanine Aminotransferase 34 IU/L (<35); Albumin 4.5 g/dL (3.5-5.0); Albumin Globulin Ratio 1.5 (1.0-2.8); Alkaline Phosphatase 94 U/L (38-126); Blood Urea Nitrogen 11 mg/dL (7-17); Calcium 9.4 mg/dL (8.4-10.2); Carbon Dioxide 24 mmol/L (22-32); Chloride 104 mmol/L (98-107); Estimated Glomerular Filt Rate > 60 mL/min (>60); Globulin 3.1 g/dL (1.7-4.1); Glucose 87 mg/dL (70-99); HEMOLYSIS < 15 (0-50); Lipase 59 U/L (23-300); Potassium 4.0 mmol/L (3.4-5.1); Sodium 139 mmol/L (137-145); Total Protein 7.6 g/dL (6.3-8.2)
[2025-07-30] MEDS: KETOROLAC 30 MG/ML VIAL 15 MG IV (11:10)
[2025-07-30] MEDS: SODIUM CHLORIDE 0.9% 1,000 ML 1000 ML IV (11:20)
[2025-07-30 12:02] VITALS: BP 179/97; PULSE 77; RESP 16; O2SAT 99
--- NOTE | 2025-07-30 12:14 | PC.NURSE ---
Called Dr. Cabello office to see if a appt can be secured earlier than October. Spoke to Ila. Message was sent to office with ED call back number. Dr Andrade aware. Reports she spoke to Dr Patino himself and reports office should be reaching out to patient within the week.
== END 2025-07-30 12:31 | disposition home or self-care (01) ==
PROVIDERS: Emergency Provider Emergency Medicine; PCP Family Medicine
DX: N12 Tubulo-interstitial nephritis, not specified as acute or chronic (principal); R10.A2 Flank pain, left side
CPT/HCPCS: 36415; 74176; 80053; 81001; 83690; 85025; 87086; 96361; 96374; 99284; J1885; J7030